=== PATIENT | male | born 1975 | race Caucasian/White ===

== ENCOUNTER 2019-10-16 21:04 | Inpatient (IN) | payer SELFPAY ==
[~2019-10-16] VITALS: Ht 175.3 cm; Wt 110.0 kg
[2019-10-16] MEDS ORDERED: NITROGLYCERIN SINGLE TAB 0.4 MG SL ONE (22:11)
[2019-10-16] MEDS: NITROGLYCERIN SINGLE TAB 0.4 MG SL PRN ×2 (22:16→22:25)
--- NOTE | 2019-10-16 22:25 | NUR ---
NITRO X2 GIVEN. PT STATES PAIN 0/10.
[2019-10-16 22:26] LABS: BASOPHILS # (AUTO) 0.06 x10^3/uL (0-0.1); BASOPHILS % (AUTO) 1 % (0-1); EOSINOPHILS # (AUTO) 0.37 x10^3/uL (0-0.4); EOSINOPHILS % (AUTO) 3 % (1-7); LYMPHOCYTES # (AUTO) 2.58 x10^3/uL (1-3.4); LYMPHOCYTES % (AUTO) 23 % (22-44); MD NO; MEAN CORPUSCULAR HEMOGLOBIN 29.5 pg (27.5-34.5); MEAN CORPUSCULAR HGB CONC 33.5 g/dL (33.2-36.2); MEAN PLATELET VOLUME 8.4 fL (7.4-10.4); MONOCYTES # (AUTO) 0.42 x10^3/uL (0.2-0.8); MONOCYTES % (AUTO) 4 % (2-9); NEUTROPHILS # (AUTO) 8.01 x10^3/uL (1.8-6.8); NEUTROPHILS % (AUTO) 70 % (42-75); PLATELET COUNT 274 x10^3/uL (130-400); RED BLOOD COUNT 4.81 x10^6/uL (4.38-5.82)
[2019-10-16 22:31] LABS: ALANINE AMINOTRANSFERASE 59 U/L (12-78); ALBUMIN 3.3 g/dL (3.4-5.0); ANION GAP 2 mmol/L (5-15); CALCIUM 8.8 mg/dL (8.5-10.1); CHLORIDE 107 mmol/L (98-107); CREATININE 1.11 mg/dL (0.7-1.3)
[2019-10-16 22:36] LABS: ALKALINE PHOSPHATASE 150 U/L (45-117); BILIRUBIN,TOTAL 0.2 mg/dL (0.2-1.0); TOTAL PROTEIN 7.5 g/dL (6.4-8.2); TROPONIN I < 0.015 ng/mL (0.000-0.045)
--- NOTE | 2019-10-16 22:45 | NUR ---
PT RESTING COMFORTABLY, FAMILY AT BEDSIDE. NO NEEDS AT THIS TIME.
--- NOTE | 2019-10-16 23:53 | NUR ---
PT PLACED IN HOSPITAL BED. AWAITING ROOM ON TELE.
[2019-10-16] MEDS ORDERED: ACETAMINOPHEN 500 MG TABLET ONE (23:58)
[2019-10-17] MEDS ORDERED: ACETAMINOPHEN 500 MG TABLET PO ONE
--- NOTE | 2019-10-17 00:32 | NUR ---
PT RESTING WITH EYES CLOSED. MONITOR IN PLACE.
[2019-10-17] MEDS ORDERED: ENOXAPARIN 40 MG/0.4 ML SQ SCH ×2 (01:00→06:00)
[2019-10-17] MEDS ORDERED: NICOTINE 21 MG/24 HR PATCH.TD24 TD PRN (01:00)
[2019-10-17] MEDS ORDERED: LIDODERM 5% PATCH TD PRN (01:00)
[2019-10-17] MEDS ORDERED: NITROGLYCERIN 0.4 MG BOTTLE (25 TABS) SL PRN (01:00)
[2019-10-17] MEDS ORDERED: ENALAPRILAT 1.25 MG/ML, 2ML IVPush PRN (01:00)
[2019-10-17] MEDS ORDERED: ONDANSETRON 2MG/ML, 2ML IVPush PRN (01:00)
[2019-10-17] MEDS ORDERED: DOCUSATE 100 MG CAPSULE PO PRN (01:00)
[2019-10-17] MEDS ORDERED: morphine SULFATE 10 MG/ML, 1ML IVPush PRN (01:00)
[2019-10-17] MEDS ORDERED: ACETAMINOPHEN 325 MG TABLET PO PRN (01:00)
[2019-10-17] MEDS ORDERED: TEMAZEPAM 15 MG CAPSULE PO PRN (01:00)
--- NOTE | 2019-10-17 01:33 | NUR ---
PT RESTING WITH EYES CLOSED. MONITOR IN PLACE.
--- NOTE | 2019-10-17 02:07 | NUR ---
Report from Toni RAMSAY. Pt resting in bed with eyes closed, resp even and unlabored, ROMAN.
--- NOTE | 2019-10-17 03:07 | NUR ---
Pt resting in bed with eyes closed, resp even and unlabored, NADN.
--- NOTE | 2019-10-17 04:09 | NUR ---
Pt resting in bed with eyes closed, easily awakens to this RN entering room. Pt c/o MARX still lingering after the NTG admin. Pt requesting aspirin for MARX. Discussed with pt options for pain medications available. Pt states he would like to wait until it's time for more tylenol to take anything. Pt denies other needs.
[2019-10-17 04:41] LABS: TROPONIN I < 0.015 ng/mL (0.000-0.045)
--- NOTE | 2019-10-17 05:12 | NUR ---
Pt resting in bed with eyes closed, resp even and unlabored, NADN.
[2019-10-17] MEDS ORDERED: ENOXAPARIN 40 MG/0.4 ML ONE (05:54)
[2019-10-17] MEDS ORDERED: ACETAMINOPHEN 325 MG TABLET ONE (05:54)
--- NOTE | 2019-10-17 06:18 | NUR ---
Pt medicated for MARX per MAR. Pt refusing Lovenox, states he does not want a shot. Educated pt about purpose of DVT prophylaxis. Pt verbalizes understanding, declines Lovenox. Pt denies other needs.
--- NOTE | 2019-10-17 07:00 | NUR ---
Report received from DEVENDRA Sinha. Assuming primary care of pt.
[2019-10-17 08:11] VITALS: BP 114/70
[2019-10-17] MEDS: INSULIN LISPRO 100 UNITS/ML, PEN SQ-INSULIN SCH ×2 (08:11→11:55)
[2019-10-17 08:42] LABS: CHOLESTEROL, TOTAL 176 mg/dL (140-239); TRIGLYCERIDES 114 mg/dL (50-200); VLDL CHOLESTEROL 23 mg/dL (0-25)
[2019-10-17 08:46] LABS: CHOL/HDL RATIO 4.9; HDL CHOL % 20 % (26-37); HDL CHOLESTEROL (DIRECT) 36 mg/dL (40-60); LDL CHOLESTEROL,CALCULATED 117 mg/dL (54-169); LDL/HDL RATIO 3.3 (0.5-3.0); TROPONIN I < 0.015 ng/mL (0.000-0.045)
--- NOTE | 2019-10-17 09:07 | NUR ---
pt to stress test
[2019-10-17] MEDS ORDERED: LISI-167 PO (11:39)
[2019-10-17] MEDS ORDERED: ASPI81TA45 PO (11:40)
== END 2019-10-17 12:18 | disposition home or self-care (01) | DRG 313 ==
LOC: ED 23:55 → EDIP 10-17 00:21 → DCLOUNGE 10-17 12:05
PROVIDERS: ADMIT Family Medicine; ATTEND Family Medicine
DX: R07.9 Chest pain, unspecified (principal); E11.65 Type 2 diabetes mellitus with hyperglycemia; E66.01 Morbid (severe) obesity due to excess calories; F17.210 Nicotine dependence, cigarettes, uncomplicated; I10 Essential (primary) hypertension; I25.2 Old myocardial infarction; Z68.35 Body mass index [BMI] 35.0-35.9, adult
CPT/HCPCS: 36415; 71045; 80053; 80061; 82962; 83036; 83735; 84100; 84443; 84484; 85025; 85379; 93005; 93017